=== PATIENT | male | born 1960 | race Caucasian/White ===

== ENCOUNTER 2019-06-17 11:05 | Day surgery (SDC) | payer MEDICAID ==
[2019-06-17] VITALS (15 sets, daily range): BP systolic 90–159; BP diastolic 32–79
[~2019-06-17] VITALS: Ht 167.6 cm; Wt 95.3 kg
[2019-06-17] MEDS ORDERED: normal saline 1000ml 1,000 ML IV PRN (11:40)
[2019-06-17 11:49] LABS: BASOPHILS # (AUTO) 0.1 X10'3 (0-0.2); BASOPHILS % (AUTO) 0.6 % (0-1); EOSINOPHILS # (AUTO) 0.1 X10'3 (0-0.9); EOSINOPHILS % (AUTO) 1.2 % (0-6); HEMATOCRIT 42.8 % (42.0-52.0); HEMOGLOBIN 14.9 g/dl (14.0-17.9); LYMPHOCYTES # (AUTO) 3.6 X10'3 (1.1-4.8); LYMPHOCYTES % (AUTO) 35.2 % (21-51); MEAN CORPUSCULAR HEMOGLOBIN 27.8 PG (27.0-31.0); MEAN CORPUSCULAR HGB CONC 34.8 g/dL (33.0-36.5); MEAN PLATELET VOLUME 7.4 FL (7.4-10.4); MONOCYTES # (AUTO) 0.7 X10'3 (0-0.9); MONOCYTES % (AUTO) 6.5 % (2-12); NEUTROPHILS # (AUTO) 5.8 X10'3 (1.8-7.7); NEUTROPHILS % (AUTO) 56.5 % (42-75); PLATELET COUNT 296 X10'3 (140-440); RED BLOOD COUNT 5.35 X10'6 (4.70-6.10); RED CELL DISTRIBUTION WIDTH 14.4 % (11.5-14.5); WHITE BLOOD COUNT 10.3 X10'3 (4.5-11.0)
[2019-06-17 11:54] LABS: ALBUMIN 3.2 G/DL (3.4-5.0); ANION GAP 10 (8-16); BLOOD UREA NITROGEN 14 MG/DL (7-18); BUN/CREATININE RATIO 13.7 (5.4-32.0); CALCIUM 8.6 MG/DL (8.5-10.1); CHLORIDE 102 MMOL/L (99-107); CREATININE 1.02 MG/DL (0.60-1.10); GLUCOSE 304 MG/DL (70-104); POTASSIUM 3.6 MMOL/L (3.5-5.1); SODIUM 138 MMOL/L (135-145); TOTAL CARBON DIOXIDE 25.8 MMOL/L (24-32); eGFR 75 ML/MIN
[2019-06-17] MEDS ORDERED: PANT-47 PO (11:58)
[2019-06-17] MEDS ORDERED: ALBU18HF2 INH (11:58)
[2019-06-17] MEDS ORDERED: MONT10TA21 PO (11:58)
[2019-06-17] MEDS ORDERED: INSU100I31 (11:58)
[2019-06-17] MEDS ORDERED: ATOR10TA87 PO (11:58)
[2019-06-17] MEDS ORDERED: METH-360 PO (11:58)
[2019-06-17] MEDS ORDERED: VARD20TA31 PO (11:58)
[2019-06-17] MEDS ORDERED: ARIP5TAB14 PO (11:58)
[2019-06-17] MEDS ORDERED: LORA-512 PO (11:58)
[2019-06-17] MEDS ORDERED: LOSA100T57 PO (11:58)
[2019-06-17] MEDS ORDERED: FLUO40CA10 PO (11:58)
[2019-06-17] MEDS ORDERED: FENO160T13 PO (11:58)
[2019-06-17] MEDS ORDERED: GABA600T13 PO (11:58)
[2019-06-17] MEDS ORDERED: normal saline 1000ml 1,000 ML IV SCH (12:23)
[2019-06-17] MEDS ORDERED: HYDROcodone/acetaminophen 5mg/325mg tablet PO PRN ×2 (12:25)
[2019-06-17] MEDS ORDERED: midazolam 2 mg/2 ml injection IV PRN (13:10)
[2019-06-17] MEDS ORDERED: fentaNYL/PF 50MCG/1 ML 2ML syringe IV PRN (13:10)
[2019-06-17] MEDS ORDERED: LIDOcaine 1% (10mg/ml) 2ml vial SQ ONE (13:10)
[2019-06-17] MEDS ORDERED: midazolam 2 mg/2 ml injection ONE (13:20)
[2019-06-17] MEDS ORDERED: fentaNYL/PF 50MCG/1 ML 2ML syringe ONE (13:20)
== END 2019-06-17 16:45 | disposition home or self-care (01) ==
LOC: SSTAY O 11:05
PROVIDERS: ATTEND Radiology Diagnostic Radiology
DX: K76.89 Other specified diseases of liver (principal); C20 Malignant neoplasm of rectum; C78.7 Secondary malignant neoplasm of liver and intrahepatic bile duct; E78.5 Hyperlipidemia, unspecified; E11.9 Type 2 diabetes mellitus without complications; F39 Unspecified mood [affective] disorder; Z98.890 Other specified postprocedural states; Z79.899 Other long term (current) drug therapy; Z79.84 Long term (current) use of oral hypoglycemic drugs
CPT/HCPCS: 36415; 47000; 76942; 80048; 82948; 85025; 85610; 99152; 99153; J2250; J3010; J7030

== ENCOUNTER 2019-07-09 10:37 | Day surgery (SDC) | payer MEDICAID ==
[~2019-07-09] VITALS: Ht 167.6 cm; Wt 92.9 kg
[~2019-07-09 10:37] MED LIST: ALBU18HF2 INH; ARIP5TAB14 PO; ATOR10TA87 PO; FENO160T13 PO; FLUO40CA10 PO; GABA600T13 PO; INSU100I31; LORA-512 PO; LOSA100T57 PO; METH-360 PO; MONT10TA21 PO; PANT-47 PO; VARD20TA31 PO
[2019-07-09] MEDS ORDERED: normal saline 1,000 ML IV SCH (10:55)
[2019-07-09] MEDS ORDERED: CAPE500T15 PO (11:19)
[2019-07-09 11:21] VITALS: BP 112/68
[2019-07-09] MEDS ORDERED: LIDOcaine 1%/PF 5ML 10 MG/ML VIAL SQ ONE (14:50)
[2019-07-09] MEDS ORDERED: fentaNYL/PF 50MCG/1 ML 2ML syringe IV PRN (14:50)
[2019-07-09] MEDS ORDERED: midazolam 2 mg/2 ml injection IV PRN (14:50)
[2019-07-09] MEDS ORDERED: heparin sodium, porcine/PF 100unit/ml 5ML syringe ICATH ONE (14:50)
[2019-07-09] MEDS ORDERED: LIDOcaine 1%/PF 5ML 10 MG/ML VIAL ONE (18:12)
[2019-07-09] MEDS ORDERED: midazolam 2 mg/2 ml injection ONE ×2 (18:12→18:30)
[2019-07-09] MEDS ORDERED: heparin sodium, porcine/PF 100unit/ml 5ML syringe ONE (18:12)
[2019-07-09] MEDS ORDERED: fentaNYL/PF 50MCG/1 ML 2ML syringe ONE ×2 (18:13→18:30)
[2019-07-09 19:00] VITALS: BP 149/82
[2019-07-09 19:15] VITALS: BP 134/87
[2019-07-09 19:30] VITALS: BP 140/90
[2019-07-09 19:45] VITALS: BP 132/81
== END 2019-07-09 20:00 | disposition home or self-care (01) ==
LOC: SSTAY O 10:37
PROVIDERS: ATTEND Radiology Vascular & Interventional Radiology
DX: C20 Malignant neoplasm of rectum (principal); C78.7 Secondary malignant neoplasm of liver and intrahepatic bile duct; E10.9 Type 1 diabetes mellitus without complications; I10 Essential (primary) hypertension; Z79.899 Other long term (current) drug therapy; Z98.890 Other specified postprocedural states; Z87.891 Personal history of nicotine dependence; Z79.84 Long term (current) use of oral hypoglycemic drugs
CPT/HCPCS: 36561; 76937; 77001; 82948; 99152; 99153; J1642; J2250; J3010; C1769; C1788; C1894

== ENCOUNTER 2020-10-12 08:50 | Day surgery (SDC) | payer MEDICAID ==
[2020-10-12] VITALS (10 sets, daily range): BP systolic 133–160; BP diastolic 78–92
[~2020-10-12] VITALS: Ht 167.6 cm; Wt 92.3 kg
[~2020-10-12 08:50] MED LIST changes: +CAPE500T15 PO; -LOSA100T57 PO; -VARD20TA31 PO
[2020-10-12] MEDS ORDERED: LOSA50TA3 PO (10:12)
[2020-10-12] MEDS ORDERED: avapro (10:12)
[2020-10-12] MEDS ORDERED: LYR25C PO (10:12)
[2020-10-12] MEDS ORDERED: iohexol 300 MG/1 ML 50ml polymer ONE (10:33)
[2020-10-12] MEDS ORDERED: heparin sodium, porcine/PF 100unit/ml 5ML syringe ONE ×2 (10:33→12:58)
[2020-10-12] MEDS ORDERED: tPA-cathflo 2 MG/2 ml IV flush ONE (10:42)
== END 2020-10-12 13:45 | disposition home or self-care (01) ==
LOC: SSTAY O 08:50
PROVIDERS: ATTEND Radiology Vascular & Interventional Radiology
DX: T82.598A Other mechanical complication of other cardiac and vascular devices and implants, initial encounter (principal); C20 Malignant neoplasm of rectum; C78.7 Secondary malignant neoplasm of liver and intrahepatic bile duct; E78.5 Hyperlipidemia, unspecified; E11.9 Type 2 diabetes mellitus without complications; F17.200 Nicotine dependence, unspecified, uncomplicated; Z85.828 Personal history of other malignant neoplasm of skin; Z79.4 Long term (current) use of insulin; Z98.890 Other specified postprocedural states; Z79.899 Other long term (current) drug therapy; Z20.822 Contact with and (suspected) exposure to COVID-19; Y83.8 Other surgical procedures as the cause of abnormal reaction of the patient, or of later complication, without mention of misadventure at the time of the procedure; Y92.89 Other specified places as the place of occurrence of the external cause
CPT/HCPCS: 36598; 82948; 87635; C9803; J1642; J2997; Q9967